=== PATIENT | male | born 1985 | race Caucasian/White ===

== ENCOUNTER 2019-11-13 13:07 | Outpatient (CLI) | payer OTHER | END 2019-11-13 23:59 | disposition home or self-care (01) | LOC: LAB.S 13:07 | DX: Z20.828 Contact with and (suspected) exposure to other viral communicable diseases (principal) ==

== ENCOUNTER 2022-09-23 12:40 | Emergency (ER) | payer OTHER ==
[2022-09-23 13:05] VITALS: BP 115/66
[2022-09-23 13:27] LABS: BASOPHILS % (AUTO) 0.5 %; EOSINOPHILS # (AUTO) 0.1 10^3/uL (0.0-0.7); EOSINOPHILS % (AUTO) 0.8 %; HGB - HEMOGLOBIN 15.6 g/dL (14.0-18.0); LYMPHOCYTES # (AUTO) 0.8 10^3/uL (1.5-3.5); LYMPHOCYTES % (AUTO) 8.8 %; MEAN CORPUSCULAR HEMOGLOBIN 31.5 pg (27.0-31.0); MEAN CORPUSCULAR HGB CONC 33.9 g/dL (32.0-36.0); MEAN CORPUSCULAR VOLUME 92.9 fL (80.0-94.0); MEAN PLATELET VOLUME 10.6 fL (7.4-11.4); MONOCYTES # (AUTO) 0.8 10^3/uL (0.0-1.0); MONOCYTES % (AUTO) 9.2 %; NEUTROPHILS # (AUTO) 6.9 10^3/uL (1.5-6.6); NEUTROPHILS % (AUTO) 80.4 %; PLT - PLATELET COUNT 202 10^3/uL (130-450); RED BLOOD COUNT 4.95 10^6/uL (4.70-6.10); RED CELL DISTRIBUTION WIDTH 11.9 % (12.0-15.0); WHITE BLOOD COUNT 8.6 x10^3/uL (4.8-10.8)
[2022-09-23 13:38] LABS: ALBUMIN 4.6 g/dL (3.2-5.5); ALBUMIN/GLOBULIN RATIO 1.7 (1.0-2.2); BILIRUBIN,TOTAL 0.7 mg/dL (0.2-1.0); CALCIUM 9.5 mg/dL (8.5-10.3); CREATININE 0.9 mg/dL (0.6-1.2); POTASSIUM 4.4 mmol/L (3.5-5.0); TOTAL PROTEIN 7.3 g/dL (6.7-8.2)
--- OUTSIDE RECORDS SUMMARY | 2022-09-23 14:25 | EXTERNAL MEDICAL SUMMARY RPT | Continuity of Care Document ---
Author Name Unknown Address [address] [place] [address] Phone Organization [facility] Address [address] [place] [address] Phone Care Team Providers Care Marketing Information Coordinator Name Role Phone Unavailable Unavailable Unavailable Nomi Campap,Crewman Armoured Personnel Carrier [id number], Miguel A Unavailable Unavailabl e Scooter Hardscape Foreman, Tailynn Unavailable Unavailabl e Scooter Hardscape Foreman, Tailynn Unavailable Unavailabl e Scooter Hardscape Foreman, Tailynn Unavailable Unavailabl e Medications date description facility 2022-09-20 00:00 [facility]one [facility] [place] 2022-09-20 00:00 methylprednisolone [facility] [place] 2022-09-20 00:00 methylprednisolone [facility] [place] 2022-09-20 00:00 methylprednisolone [facility] [place] 2022-09-20 00:00 [facility]anolol [facility] 2022-09-20 00:00 propranolol [facility] 2022-09-20 00:00 propranolol [facility] 2022-09-23 00:00 propranolol [facility] 2022-09-20 00:00 triamcinolone acetonide [facility] 2022-09-20 00:00 triamcinolone acetonide [facility] 2022-09-20 00:00 triamcinolone acetonide [facility] 2022-09-23 00:00 triamcinolone acetonide [facility] 2022-09-20 00:00 DEXAMETHASONE SODIUM PHOSPHATE [facility] [place] 2022-09-20 00:00 DEXAMETHASONE SODIUM PHOSPHATE [facility] [place] 2022-09-20 00:00 DEXAMETHASONE SODIUM PHOSPHATE [facility] [place] 2022-09-20 00:00 DEXAMETHASONE SODIUM PHOSPHATE [facility] [place] 2022-09-20 00:00 oxymetazoline [facility] [place] 2022-09-20 00:00 oxymetazoline [facility] [place] 2022-09-20 00:00 oxymetazoline [facility] [place] 2022-09-20 00:00 oxymetazoline [facility] [place] 2022-09-20 00:00 valacyclovir [facility] [place] 2022-09-20 00:00 valacyclovir [facility] [place] 2022-09-20 00:00 valacyclovir [facility] [place] 2022-09-23 00:00 valacyclovir [facility] [place] 2022-09-20 00:00 propranolol [facility] [place] 2022-09-20 00:00 propranolol [facility] [place] 2022-09-20 00:00 propranolol [facility] [place] 2022-09-23 00:00 propranolol [facility] [place] 2022-09-20 00:00 methylprednisolone [facility] [place] 2022-09-20 00:00 methylprednisolone [facility] [place] 2022-09-20 00:00 methylprednisolone Walk[facility]In [facility] [place] 2022-09-20 00:00 methylprednisolone [facility] [place] 2022-09-20 00:00 oxymetazoline [facility] [place] 2022-09-20 00:00 oxymetazoline [facility] [place] 2022-09-20 00:00 oxymetazoline [facility] [place] 2022-09-20 00:00 oxymetazoline [facility] [place] 2022-09-20 00:00 triamcinolone acetonide [facility] [place] 2022-09-20 00:00 triamcinolone acetonide [facility] [place] 2022-09-20 00:00 triamcinolone acetonide [facility] [place] 2022-09-23 00:00 triamcinolone acetonide [facility] [place] 2022-09-20 00:00 methylprednisolone [facility] [place] 2022-09-20 00:00 methylprednisolone [facility] [place] 2022-09-20 00:00 methylprednisolone [facility] [place] 2022-09-20 00:00 methylprednisolone Walk[facility] [place] 2022-09-20 00:00 sertraline [facility] [place] 2022-09-20 00:00 sertraline [facility] [place] 2022-09-20 00:00 sertraline [facility] [place] 2022-09-23 00:00 sertraline [facility] [place] 2022-09-20 00:00 sertraline [facility] [place] 2022-09-20 00:00 sertraline [facility] [place] 2022-09-20 00:00 sertraline [facility] [place] 2022-09-23 00:00 sertraline [facility] [place] 2022-09-20 00:00 sertraline [facility] [place] 2022-09-20 00:00 sertraline [facility] [place] 2022-09-20 00:00 sertraline [facility] [place] 2022-09-23 00:00 sertraline [facility] [place] 2022-09-20 00:00 sertraline [facility] [place] 2022-09-20 00:00 sertraline [facility] [place] 2022-09-20 00:00 sertraline [facility] [place] 2022-09-23 00:00 sertraline [facility] [place] 2022-09-20 00:00 valacyclovir [facility] [place] 2022-09-20 00:00 valacyclovir [facility] [place] 2022-09-20 00:00 valacyclovir [facility] [place] 2022-09-23 00:00 valacyclovir [facility] [place] 2022-09-20 00:00 propranolol [facility] [place] 2022-09-20 00:00 propranolol [facility] [place] 2022-09-20 00:00 propranolol [facility] [place] 2022-09-23 00:00 propranolol [facility] [place] 2022-09-20 00:00 valacyclovir [facility] [place] 2022-09-20 00:00 valacyclovir [facility] [place] 2022-09-20 00:00 valacyclovir [facility] [place] 2022-09-23 00:00 valacyclovir [facility] [place] 2022-09-20 00:00 oxymetazoline [facility] [place] 2022-09-20 00:00 oxymetazoline [facility] [place] 2022-09-20 00:00 oxymetazoline [facility] [place] 2022-09-20 00:00 oxymetazoline [facility] [place] 2022-09-20 00:00 triamcinolone acetonide [facility] [place] 2022-09-20 00:00 triamcinolone acetonide [facility] [place] 2022-09-20 00:00 triamcinolone acetonide [facility] [place] 2022-09-23 00:00 triamcinolone acetonide [facility] [place] 2022-09-20 00:00 sertraline [facility] [place] 2022-09-20 00:00 sertraline [facility] [place] 2022-09-20 00:00 sertraline [facility] [place] 2022-09-23 00:00 sertraline [facility] [place] 2022-09-20 00:00 sertraline [facility] [place] 2022-09-20 00:00 sertraline [facility] [place] 2022-09-20 00:00 sertraline [facility] [place] 2022-09-23 00:00 sertraline [facility] [place] 2022-09-20 00:00 sertraline [facility] [place] 2022-09-20 00:00 sertraline [facility] [place] 2022-09-20 00:00 sertraline [facility] [place] 2022-09-23 00:00 sertraline [facility] [place] 2022-09-20 00:00 sertraline [facility] [place] 2022-09-20 00:00 sertraline [facility] [place] 2022-09-20 00:00 sertraline [facility] [place] 2022-09-23 00:00 sertraline [facility] 2022-09-20 00:00 valacyclovir [facility] 2022-09-20 00:00 valacyclovir [facility] 2022-09-20 00:00 valacyclovir [facility] 2022-09-23 00:00 valacyclovir [facility] 2022-09-20 00:00 methylprednisolone [facility] [place] 2022-09-20 00:00 methylprednisolone [facility] [place] 2022-09-20 00:00 methylprednisolone [facility] [place] 2022-09-20 00:00 methylprednisolone Walk[facility]In [facility] [place] 2022-09-20 00:00 propranolol [facility] [place] 2022-09-20 00:00 propranolol [facility] [place] 2022-09-20 00:00 propranolol [facility] [place] 2022-09-23 00:00 propranolol [facility] [place] 2022-09-20 00:00 KETOROLAC TROMETHAMINE [facility] [place] 2022-09-20 00:00 KETOROLAC TROMETHAMINE [facility] [place] 2022-09-20 00:00 KETOROLAC TROMETHAMINE [facility] [place] 2022-09-20 00:00 KETOROLAC TROMETHAMINE [facility] [place] 2022-09-20 00:00 triamcinolone acetonide [facility] [place] 2022-09-20 00:00 triamcinolone acetonide [facility] [place] 2022-09-20 00:00 triamcinolone acetonide [facility] [place] 2022-09-23 00:00 triamcinolone acetonide [facility] [place] Problems date description facility 2022-09-20 00:00 Pain in throat [facility] [place] 2022-09-20 00:00 Pain in throat [facility] [place] 2022-09-20 00:00 Pain in throat [facility] [place] 2022-09-20 00:00 Pain in throat [facility] [place] 2022-09-20 00:00 Acute pharyngitis Walk[facility]In [facility] [place] 2022-09-20 00:00 Acute pharyngitis [facility] [place] 2022-09-20 00:00 [facility] [place] 2022-09-20 00:00 Acute [facility]itis [facility] [place] 2022-09-20 00:00 Acute pharyngitis, unspecified [facility] [place] 2022-09-20 00:00 Acute pharyngitis, unspecified [facility] [place] 2022-09-20 00:00 Acute pharyngitis, unspecified [facility] [place] 2022-09-20 00:00 Acute pharyngitis, unspecified [facility] [place] Procedures date description facility 2022-09-20 00:00 Visit Code Hold [facility] [place] 2022-09-20 00:00 Visit Code Hold [facility] [place] 2022-09-20 00:00 Visit Code Hold [facility] [place] 2022-09-20 00:00 Visit Code Hold [facility] [place] 2022-09-20 00:00 POC STREP TEST [facility] [place] 2022-09-20 00:00 POC STREP TEST [facility] [place] 2022-09-20 00:00 POC STREP TEST [facility] [place] 2022-09-20 00:00 POC STREP TEST [facility] [place] 2022-09-20 00:00 POC SARCOV2&INF A&B&RSV AMP PB [facility] [place] 2022-09-20 00:00 POC SARCOV2&INF A&B&RSV AMP PB [facility] [place] 2022-09-20 00:00 POC SARCOV2&INF A&B&RSV AMP PB [facility] [place] 2022-09-20 00:00 POC SARCOV2&INF A&B&RSV AMP PB [facility] Results/Labs test date author facility value unit interpretation Result panel 1 (unknown) (no date) (unknown) [facility] [place] (no value) (units unknown) (unknown) Result panel 2 (unknown) (no date) (unknown) [facility] [place] (no value) (units unknown) (unknown) Result panel 3 (unknown) (no date) (unknown) [facility] (no value) (units unknown) (unknown) Result panel 4 (unknown) (no date) (unknown) [facility] (no value) (units unknown) (unknown) Result panel 5 (unknown) (no date) (unknown) [facility] [place] (no value) (units unknown) (unknown) Social History date description facility 2022-09-20 00:00 Never smoker [facility] [place] 2022-09-20 00:00 Never smoker [facility] [place] 2022-09-20 00:00 Never smoker [facility] [place] 2022-09-20 00:00 Never smoker [facility] [place] Vital Signs date measurement value units 2022-09-20 00:00 BMI 28.35 kg/m2 2022-09-20 00:00 BP_diastolic 68 mmHg 2022-09-20 00:00 BP_systolic 121 mmHg 2022-09-20 00:00 heart_rate 50 /min 2022-09-20 00:00 height_metric 187.96 cm 2022-09-20 00:00 height_standard 74 in 2022-09-20 00:00 respiration_rate 14 /min 2022-09-20 00:00 temperature_metric 522.78 C 2022-09-20 00:00 temperature_standard 973 F 2022-09-20 00:00 weight_metric 99.79 kg 2022-09-20 00:00 weight_standard 220 lb
== END 2022-09-23 14:51 | disposition left against medical advice (07) ==
LOC: ED 12:40
DX: Z53.21 Procedure and treatment not carried out due to patient leaving prior to being seen by health care provider (principal)
CPT/HCPCS: 36415; 80053; 83690; 85025

== ENCOUNTER 2022-09-26 16:39 | Outpatient (CLI) | payer OTHER ==
[2022-09-26 22:58] LABS: CHLAMYDIA TRACHOMATIS DNA NEGATIVE (NEGATIVE); NEISSERIA GONORRHOEAE DNA NEGATIVE (NEGATIVE); TRICHOMONAS VAGINALIS DNA NEGATIVE (NEGATIVE)
[2022-09-28 04:09] LABS: HBsAG SCREEN Negative (Negative)
[2022-09-28 07:09] LABS: RPR Non Reactive (Non Reactive)
[2022-09-29 08:07] LABS: HIV SCREEN 4TH GENERATION Non Reactive (Non Reactive)
[2022-09-30 09:08] LABS: HCV AB Non Reactive (Non Reactive)
== END 2022-09-26 16:40 | disposition home or self-care (01) ==
LOC: LAB 16:39
PROVIDERS: ATTEND Obstetrics & Gynecology
DX: Z11.59 Encounter for screening for other viral diseases (principal); Z11.3 Encounter for screening for infections with a predominantly sexual mode of transmission
CPT/HCPCS: 86592; 86803; 87340; 87389; 87491; 87591; 87661

== ENCOUNTER 2023-08-29 08:00 | Outpatient (CLI) | payer OTHER | END 2023-08-29 23:59 | disposition home or self-care (01) | LOC: LAB.S 08:00 | PROVIDERS: ATTEND Physician Assistant Medical | DX: R07.0 Pain in throat (principal) | CPT/HCPCS: 87070 ==

== ENCOUNTER 2024-01-09 08:00 | Outpatient (CLI) | payer OTHER ==
--- NOTE | 2024-01-09 16:06 | XRAY Report ---
Finger(s) LT HISTORY: 38 years of age, CRUSHING INJURY LEFT THUMB TECHNIQUE: Finger(s) LT COMPARISON: None. FINDINGS/IMPRESSION: Cortical irregularity of the volar base of the first distal phalanx, which may be projectional versus nondisplaced fracture. Joint spaces are well-maintained. Reviewed by: Christine Allison MD on 01/09/2024 4:05 PM PDT Approved by: Christine Allison MD on 01/09/2024 4:05 PM PDT Station ID: [id number]
== END 2024-01-09 23:59 | disposition home or self-care (01) ==
LOC: DI.S 08:00
PROVIDERS: ATTEND Emergency Medicine
DX: S60.112A Contusion of left thumb with damage to nail, initial encounter (principal); R93.6 Abnormal findings on diagnostic imaging of limbs